=== PATIENT | female | born 1985 | race American Indian/Alaskan Native ===

== ENCOUNTER 2020-09-27 20:51 | Emergency (ER) | payer SELFPAY ==
--- NOTE | 2020-09-28 00:01 | Emergency Department Report ---
- General Stated Complaint: FEVER PUI?: No - History of Present Illness Initial Comments: Patient is a 34-year-old -Italian female with no past medical history presents to the ED with complaint of acute onset persistent nasal and sinus congestion, persistent mild dry cough with diffuse body aches and pains and subjective fever and chills for the last 3 days, worse in the last 24 hours. Patient states that her has had similar symptoms. Patient denies dizziness, syncope, nausea and vomiting, chest pain or shortness of breath, sore throat, abdominal pain, dysuria, urinary frequency and urgency or headache. MD Complaint: cough, rhinorrhea, nasal congestion, sinus pain, other (Body aches and pains) -: Sudden, days(s) (2) Severity: moderate Severity scale (0 -10): 4 Quality: aching Consistency: constant Improves With: nothing Worsens With: nothing Context: sick contacts Associated Symptoms: chills, myalgias, headache, rhinorrhea, nasal congestion, cough. denies: fever, diaphoresis, sore throat, stiff neck, chest pain, shortness of breath, abdominal pain, nausea, vomiting, diarrhea, dysuria, rash, confusion, right sweats, weight loss, epistaxis, hoarseness, ear pain, other Treatments Prior to Arrival: none - Related Data Previous Rx's Medication Instructions Recorded Last Taken Type Azithromycin [Zithromax Z-MARTELL] 250 mg PO DAILY #6 tablet 09/28/20 Unknown Rx Benzonatate [Tessalon Perles] 100 mg PO Q8HR #30 capsule 09/28/20 Unknown Rx Ibuprofen [Motrin] 800 mg PO Q8HR PRN #24 tablet 09/28/20 Unknown Rx Levocetirizine Dihydrochloride 5 mg PO DAILY #30 tablet 09/28/20 Unknown Rx [Xyzal] predniSONE [Deltasone] 40 mg PO QDAY #10 tab 09/28/20 Unknown Rx ED Review of Systems ROS: Stated complaint: FEVER Other details as noted in HPI Constitutional: denies: chills, fever Eyes: denies: eye pain, eye discharge, vision change ENT: congestion. denies: ear pain, throat pain Respiratory: cough, shortness of breath, wheezing Cardiovascular: denies: chest pain, palpitations Endocrine: no symptoms reported Gastrointestinal: denies: abdominal pain, nausea, vomiting, diarrhea Genitourinary: denies: urgency, dysuria, discharge Musculoskeletal: denies: back pain, joint swelling, arthralgia Skin: denies: rash, lesions Neurological: denies: headache, weakness, paresthesias Psychiatric: denies: anxiety, depression Hematological/Lymphatic: denies: easy bleeding, easy bruising ED Past Medical Hx - Medications Home Medications: Home Medications Medication Instructions Recorded Confirmed Last Taken Type Azithromycin [Zithromax Z-MARTELL] 250 mg PO DAILY #6 tablet 09/28/20 Unknown Rx Benzonatate [Tessalon Perles] 100 mg PO Q8HR #30 capsule 09/28/20 Unknown Rx Ibuprofen [Motrin] 800 mg PO Q8HR PRN #24 tablet 09/28/20 Unknown Rx Levocetirizine Dihydrochloride 5 mg PO DAILY #30 tablet 09/28/20 Unknown Rx [Xyzal] predniSONE [Deltasone] 40 mg PO QDAY #10 tab 09/28/20 Unknown Rx ED Physical Exam - General General appearance: alert, in no apparent distress - Head Head exam: Present: atraumatic, normocephalic, normal inspection - Eye Eye exam: Present: normal appearance, PERRL, EOMI Pupils: Present: normal accommodation - ENT ENT exam: Present: normal orophraynx, mucous membranes moist, TM's normal bilaterally, normal external ear exam, other (Grossly congested nasal passages) - Neck Neck exam: Present: normal inspection, full ROM - Respiratory Respiratory exam: Present: normal lung sounds bilaterally. Absent: respiratory distress, wheezes, rales, rhonchi, chest wall tenderness, accessory muscle use, decreased breath sounds - Cardiovascular Cardiovascular Exam: Present: regular rate, normal rhythm, normal heart sounds. Absent: systolic murmur, diastolic murmur, rubs, gallop - GI/Abdominal GI/Abdominal exam: Present: soft, normal bowel sounds. Absent: tenderness, guarding, hyperactive bowel sounds, hypoactive bowel sounds, organomegaly - Extremities Exam Extremities exam: Present: normal inspection, full ROM, normal capillary refill - Back Exam Back exam: Present: normal inspection, full ROM. Absent: tenderness, CVA tenderness (R), CVA tenderness (L), muscle spasm, paraspinal tenderness, vertebral tenderness - Neurological Exam Neurological exam: Present: alert, oriented X3, CN II-XII intact, normal gait, reflexes normal - Psychiatric Psychiatric exam: Present: normal affect, normal mood - Skin Skin exam: Present: warm, dry, intact, normal color. Absent: rash ED Medical Decision Making - Medical Decision Making This is a 34-year-old -Italian female with no past medical history presents to the ED with complaint of acute onset persistent nasal and sinus congestion, persistent mild dry cough with diffuse body aches and pains and subjective fever and chills for the last 3 days, worse in the last 24 hours. Patient states that her has had similar symptoms. In the ED, patient is alert and oriented x3 and is not in any distress. Based on the history and physical exam findings, and the patient is hemodynamically stable, patient will discharge home on medications and advised to follow-up with her primary care physician in 5 to 7 days for reevaluation. Patient was advised return to the ED immediately if symptoms get worse. - Differential Diagnosis URI; bronchitis; pneumonia; viral syndrome; Critical care attestation.: If time is entered above; I have spent that time in minutes in the direct care of this critically ill patient, excluding procedure time. ED Disposition Clinical Impression: Acute upper respiratory infection Acute bronchitis Qualifiers: Bronchitis organism: unspecified organism Qualified Code(s): J20.9 - Acute bronchitis, unspecified Disposition: DC-01 TO HOME OR SELFCARE Is pt being admited?: No Does the pt Need Aspirin: No Condition: Stable Instructions: Cough, Adult, [id number], Acute Bronchitis, Adult, [id number], Upper Respiratory Infection, Adult, [id number], Acute Bronchitis (ED) Additional Instructions: Take medication with food, drink plenty of fluids and follow-up with your primary care physician in 5 to 7 days for reevaluation. Return to the ED immediately if symptoms get worse. Prescriptions: predniSONE [Deltasone] 40 mg PO QDAY #10 tab Ibuprofen [Motrin] 800 mg PO Q8HR PRN #24 tablet PRN Reason: Pain , Severe (7-10) Benzonatate [Tessalon Perles] 100 mg PO Q8HR #30 capsule Levocetirizine Dihydrochloride [Xyzal] 5 mg PO DAILY #30 tablet Azithromycin [Zithromax Z-MARTELL] 250 mg PO DAILY #6 tablet Referrals: [facility] [Provider Group] - 3-5 Days Forms: Work/School Release Form(ED) Time of Disposition: 00:07 Print Language: [place]ORE[place]
== END 2020-09-28 01:52 | disposition home or self-care (01) ==
LOC: ED 20:51
CPT/HCPCS: 99282